=== PATIENT | male | born 1975 | race Caucasian/White ===

== ENCOUNTER 2020-08-26 17:23 | Emergency (ER) | payer OTHER, MEDICAID ==
[~2020-08-26] VITALS: Ht 175.3 cm; Wt 84.8 kg
[2020-08-26 17:32] VITALS: Ht 175.3 cm; Wt 84.8 kg
[2020-08-26 18:16] VITALS: BP 144/84
== END 2020-08-26 18:16 | disposition home or self-care (01) ==
LOC: ED 17:23
DX: S46.912A Strain of unspecified muscle, fascia and tendon at shoulder and upper arm level, left arm, initial encounter (principal); X58.XXXA Exposure to other specified factors, initial encounter; Y93.89 Activity, other specified; Y92.89 Other specified places as the place of occurrence of the external cause; Y99.8 Other external cause status; E11.9 Type 2 diabetes mellitus without complications
CPT/HCPCS: J1885